=== PATIENT | female | born 1995 | race Caucasian/White ===

== ENCOUNTER 2016-05-12 09:16 | Emergency (ER) | payer SELFPAY ==
[2016-05-12] MEDS ORDERED: IBUPROFEN 600 MG TAB PO STA (09:44)
--- NOTE | 2016-05-12 09:47 | ED ---
General Adult HPI - General Chief complaint: ENT Stated complaint: sore throat Time Seen by Provider: 05/12/16 09:38 Source: patient, RN notes reviewed Mode of arrival: ambulatory Limitations: no limitations - History of Present Illness Initial comments: Patient 20-year-old female who presents emergency room today with chief complaint of possible "strep throat". She states that she began having symptoms yesterday. He admits that hurts when she swallows. Denies cough. Admits to fever and chills. Denies any other complaints or symptoms. Patient denies any recent shortness of breath, chest pain, back pain, abdominal pain, nausea or vomiting, numbness or tingling, dysuria or hematuria, constipation or diarrhea, headaches or visual changes, or any other complaints. - Related Data Home Medications Medication Instructions Recorded Confirmed Allergy Tab(Unknown) 1 tab PO DAILY PRN 05/12/16 05/12/16 Allergies Allergy/AdvReac Type Severity Reaction Status Date / Time No Known Allergies Allergy Verified 05/12/16 09:40 Review of Systems ROS Statement: Those systems with pertinent positive or pertinent negative responses have been documented in the HPI. ROS Other: All systems not noted in ROS Statement are negative. Past Medical History Past Medical History: No Reported History History of Any Multi-Drug Resistant Organisms: None Reported Past Surgical History: No Surgical Hx Reported Past Psychological History: No Psychological Hx Reported Smoking Status: Never smoker Past Alcohol Use History: None Reported Past Drug Use History: None Reported General Exam - General Exam Comments Initial Comments: General: The patient is awake and alert, in no distress, and does not appear acutely ill. Eye: Pupils are equal, round and reactive to light, extra-ocular movements are intact. No nystagmus. There is normal conjunctiva bilaterally. No signs of icterus. Ears, nose, mouth and throat: There are moist mucous membranes and no oral lesions. 2+ tonsils. Mild redness erythema to posterior pharynx. No exudate appreciated. Uvula midline. Patient swallows without difficulty. Neck: The neck is supple, there is no tenderness or JVD. Cardiovascular: There is a regular rate and rhythm. No murmur, rub or gallop is appreciated. Respiratory: Lungs are clear to auscultation, respirations are non-labored, breath sounds are equal. No wheezes, stridor, rales, or rhonchi. Gastrointestinal: Soft, non-distended, non-tender abdomen without masses or organomegaly noted. There is no rebound or guarding present. No CVA tenderness. Bowel sounds are unremarkable. Musculoskeletal: Normal ROM, no tenderness. Strength 5/5. Sensation intact. Pulses equal bilaterally 2+. Neurological: A&O x 3. CN II-XII intact, There are no obvious motor or sensory deficits. Coordination appears grossly intact. Speech is normal. Skin: Skin is warm and dry and no rashes or lesions are noted. Psychiatric: Cooperative, appropriate mood & affect, normal judgment. Limitations: no limitations Course Vital Signs 05/12/16 09:22 Temperature 98.4 F Pulse Rate 100 Respiratory 18 Rate Blood Pressure 129/60 O2 Sat by Pulse 100 Oximetry Medical Decision Making - Medical Decision Making Patient's strep test and influenza negative. The emergency room. Patient advised also to viral illness will be discharged home advise use over-the- counter medications. Patient advised return if any symptoms increase or worsen or for any other concerns. - Lab Data Lab Results 05/12/16 05/12/16 Range/Units 09:50 09:50 Influenza Type A RNA Not Detected (Not Detectd) Influenza Type B (PCR) Not Detected (Not Detectd) Group A Strep Rapid Negative (Negative) Disposition Clinical Impression: Upper respiratory infection Disposition: HOME SELF-CARE Condition: Good Instructions: Upper Respiratory Infection (ED) Additional Instructions: Please use [id number] medications as discussed. Please follow-up with family doctor in the next 2 days of symptoms have not improved. Please return to emergency room if the symptoms increase or worsen or for any other concerns. Referrals: None,Stated [Primary Care Provider] - 1-2 days Melissa Velazquez MD [REFERRING] - 1-2 days Time of Disposition: 10:40
[2016-05-12 10:57] VITALS: BP 112/65; PULSE 86; RESP 16; TEMP 98.5
== END 2016-05-12 10:57 | disposition home or self-care (01) ==
LOC: EC 09:16
DX: J06.9 Acute upper respiratory infection, unspecified (principal)
CPT/HCPCS: 87081; 87430; 87502; 99283

== ENCOUNTER → 2017-07-17 | Outpatient (CLI) | payer OTHER ==
--- NOTE | 2017-07-17 11:16 | XR ---
EXAMINATION TYPE: XR chest 2V DATE OF EXAM: 07/17/2017 COMPARISON: 04/16/2007 HISTORY: Physical examination. TECHNIQUE: Frontal and lateral views of the chest are obtained. FINDINGS: There is no focal air space opacity, pleural effusion, or pneumothorax seen. The cardiac silhouette size is within normal limits. The osseous structures are intact. IMPRESSION: No acute cardiopulmonary process.
[2017-07-17 11:17] LABS: HCT 44.5 % (34.0-46.0); HGB 15.3 gm/dL (11.4-16.0); MCH 30.3 pg (25.0-35.0); MCHC 34.5 g/dL (31.0-37.0); Mean Platelet Volume 6.6; Platelet Count 343 k/uL (150-450); RBC 5.05 m/uL (3.80-5.40); RDW 12.5 % (11.5-15.5); WBC 10.5 k/uL (4.0-11.0)
[2017-07-17 11:24] LABS: Appearance,Urine Cloudy (Clear); Bacteria,Urine Few /hpf; Bilirubin,Urine Negative (Negative); Blood,Urine Negative (Negative); Color,Urine Yellow; Glucose,Urine (UA) Negative (Negative); Ketones,Urine Negative (Negative); Leukocyte Esterase,Urine Negative (Negative); Mucus,Urine Rare /hpf; Nitrite,Urine Negative (Negative); Protein,Urine Trace (Negative); RBC,Urine 1 /hpf (0-5); Specific Gravity,Urine 1.024 (1.001-1.035); Squamous Epithelial Cell,Urine 4 /hpf (0-4); Urobilinogen,Urine <2.0 mg/dL (<2.0); WBC,Urine 3 /hpf (0-5)
[2017-07-17 11:49] LABS: ALT 28 U/L (9-52); AST 19 U/L (14-36); Albumin 4.7 g/dL (3.5-5.0); Alkaline Phosphatase 83 U/L (38-126); Anion Gap 14 mmol/L; Blood Urea Nitrogen 11 mg/dL (7-17); Calcium 9.8 mg/dL (8.4-10.2); Carbon Dioxide 25 mmol/L (22-30); Chloride 104 mmol/L (98-107); Cholesterol 189 mg/dL (<200); Glucose 90 mg/dL (74-99); HDL Cholesterol 56 mg/dL (40-60); LDL Cholesterol,Calculated 106 mg/dL (0-99); Potassium 4.2 mmol/L (3.5-5.1); Sodium 143 mmol/L (137-145); Total Bilirubin 0.8 mg/dL (0.2-1.3); Total Protein 7.7 g/dL (6.3-8.2); Triglycerides 137 mg/dL (<150)
[2017-07-17 12:02] LABS: T4, Free (Free Thyroxine) 0.84 ng/dL (0.78-2.19)
== END | disposition home or self-care (01) ==
LOC: RADXRMAIN 10:33
PROVIDERS: ATTEND Internal Medicine
DX: Z00.00 Encounter for general adult medical examination without abnormal findings (principal)
CPT/HCPCS: 36415; 71046; 80053; 80061; 81001; 84439; 84443; 85027

== ENCOUNTER → 2019-12-24 | Outpatient (CLI) | payer BC ==
--- NOTE | 2019-12-24 16:55 | CT ---
EXAMINATION TYPE: CT abdomen pelvis w con DATE OF EXAM: 12/24/2019 COMPARISON: None HISTORY: Elevated WBC CT DLP: 1091 mGycm Automated exposure control for dose reduction was used. CONTRAST: Performed with IV Contrast, patient injected with 100 mL of Isovue 300. Images were obtained from the diaphragm to the floor the pelvis with oral and IV contrast. The lung bases are clear. There is no pleural effusion. Heart size is normal. There is no pericardial effusion. Liver spleen stomach pancreas gallbladder appear normal. Bile ducts are not dilated. There is no adrenal mass. Kidneys show satisfactory contrast opacification. There is no hydronephrosi s. Bladder distends smoothly. There is no inguinal hernia. Uterus is anteverted. Ureters are not dila jermaine. There is no free fluid in the pelvis. There is no pelvic mass. Appendix measures 6 mm. There is no sign of appendicitis. Small bowel pattern is normal. There is no mesenteric edema. There is no ascites or free air. There is no bowel obstruction. There is no retrope ritoneal adenopathy. Lumbar vertebra have normal spacing and alignment. Posterior elements are intact. There is no geoffrey jerzy fracture. Pelvis appears normal. Hip joints appear normal. IMPRESSION: Normal appendix. Negative CT scan abdomen and pelvis. Normal kidneys. No sign of pyelonephritis.
== END | disposition home or self-care (01) ==
LOC: RADCTMAIN 11:58
PROVIDERS: ATTEND Family Medicine
DX: D72.829 Elevated white blood cell count, unspecified (principal); R10.32 Left lower quadrant pain
CPT/HCPCS: 74177; Q9967

== ENCOUNTER → 2020-01-06 | Outpatient (CLI) | payer BC ==
--- NOTE | 2020-01-06 12:18 | US ---
EXAMINATION TYPE: US pelvis complete transvag DATE OF EXAM: 01/06/2020 COMPARISON: Correlation CT 12/24/2019 CLINICAL HISTORY: 24-year-old female R10.32 LLQ Pain. Pt states LLQ pain that has gotten better TECHNIQUE: Transabdominal and transvaginal sonographic images of the pelvis were acquired. Date of LMP: 12/30/2019 FINDINGS: EXAM MEASUREMENTS: Uterus: 7.1 x 3.5 x 3.6 cm Endometrial Stripe: 0.7 cm Right Ovary: 3.2 x 2.5 x 1.8 cm Left Ovary: 3.7 x 3.0 x 2.5 cm 1. Uterus: Anteverted. The myometrium is slightly heterogeneous in appearance. 2. Endometrium: wnl 3. Right Ovary: wnl, follicles 4. Left Ovary: wnl, follicles- dominant follicle= 1.3 x 1.1 x 1.6 cm 5. Bilateral Adnexa: wnl 6. Posterior cul-de-sac: Scant amount of free fluid IMPRESSION: Normal follicular change in the ovaries. Trace cul-de-sac free fluid likely physiologic. No specific abnormality otherwise seen.
== END | disposition home or self-care (01) ==
LOC: RADUSWWP 09:37
PROVIDERS: ATTEND Family Medicine
DX: R10.32 Left lower quadrant pain (principal)
CPT/HCPCS: 76830; 76856